=== PATIENT | female | born 1985 | race Caucasian/White ===

== ENCOUNTER 2021-07-01 22:24 | Emergency (ER) | payer OTHER ==
[~2021-07-01] VITALS: Ht 165.1 cm; Wt 95.5 kg
[2021-07-01 22:33] VITALS: BP 141/79
[2021-07-02] MEDS ORDERED: AMOX-422 PO (00:40)
[2021-07-02] MEDS ORDERED: amox tr/potassium clavulanate 875/125mg TAB PO ONE (00:45)
== END 2021-07-02 01:12 | disposition home or self-care (01) ==
LOC: ER 22:24
DX: S61.432A Puncture wound without foreign body of left hand, initial encounter (principal); Z79.2 Long term (current) use of antibiotics; W55.01XA Bitten by cat, initial encounter; Y93.89 Activity, other specified; Y92.89 Other specified places as the place of occurrence of the external cause; Y99.8 Other external cause status
CPT/HCPCS: 99283